=== PATIENT | female | born 1940 | race Two or more races ===

== ENCOUNTER 2018-06-05 07:15 | Outpatient (CLI) | payer OTHER | END 2018-06-05 07:35 | disposition home or self-care (01) | LOC: LAB 07:15 | DX: C90.00 Multiple myeloma not having achieved remission (principal); D53.1 Other megaloblastic anemias, not elsewhere classified; B02.9 Zoster without complications ==

== ENCOUNTER 2018-08-02 07:42 | Outpatient (CLI) | payer OTHER | END 2018-08-02 07:55 | disposition home or self-care (01) | LOC: LAB 07:42 | DX: C90.00 Multiple myeloma not having achieved remission (principal); D63.1 Anemia in chronic kidney disease; B02.9 Zoster without complications; I10 Essential (primary) hypertension ==

== ENCOUNTER → 2018-11-03 07:05 | Outpatient (CLI) | payer OTHER | END | disposition home or self-care (01) | LOC: LAB 07:05 | DX: C90.00 Multiple myeloma not having achieved remission (principal); D63.0 Anemia in neoplastic disease; D63.1 Anemia in chronic kidney disease; B02.9 Zoster without complications; N18.4 Chronic kidney disease, stage 4 (severe); R97.0 Elevated carcinoembryonic antigen [CEA]; D50.8 Other iron deficiency anemias; D51.8 Other vitamin B12 deficiency anemias; I10 Essential (primary) hypertension ==

== ENCOUNTER 2019-01-12 08:34 | Outpatient (CLI) | payer OTHER | END 2019-01-12 10:19 | disposition home or self-care (01) | LOC: LAB 08:34 | DX: C90.00 Multiple myeloma not having achieved remission (principal); D63.0 Anemia in neoplastic disease; D63.1 Anemia in chronic kidney disease; B02.9 Zoster without complications; N18.4 Chronic kidney disease, stage 4 (severe); R97.0 Elevated carcinoembryonic antigen [CEA] ==

== ENCOUNTER 2019-02-14 07:50 | Outpatient (CLI) | payer OTHER | END 2019-02-14 16:32 | disposition home or self-care (01) | LOC: LAB 07:50 | DX: E03.8 Other specified hypothyroidism (principal); C90.00 Multiple myeloma not having achieved remission; D63.0 Anemia in neoplastic disease; D63.1 Anemia in chronic kidney disease; B02.8 Zoster with other complications; N18.4 Chronic kidney disease, stage 4 (severe); R97.0 Elevated carcinoembryonic antigen [CEA]; D50.8 Other iron deficiency anemias; D51.8 Other vitamin B12 deficiency anemias; I10 Essential (primary) hypertension ==

== ENCOUNTER 2019-04-24 10:15 | Outpatient (CLI) | payer OTHER | END 2019-04-24 10:29 | disposition home or self-care (01) | LOC: LAB 10:15 | DX: D50.8 Other iron deficiency anemias (principal); C90.00 Multiple myeloma not having achieved remission; D63.0 Anemia in neoplastic disease; B02.9 Zoster without complications; N18.4 Chronic kidney disease, stage 4 (severe); R97.0 Elevated carcinoembryonic antigen [CEA] ==

== ENCOUNTER 2019-05-18 07:40 | Outpatient (CLI) | payer OTHER | END 2019-05-18 07:55 | disposition home or self-care (01) | LOC: LAB 07:40 | DX: E03.8 Other specified hypothyroidism (principal); C90.00 Multiple myeloma not having achieved remission; D63.0 Anemia in neoplastic disease; D63.1 Anemia in chronic kidney disease; B02.9 Zoster without complications; N18.4 Chronic kidney disease, stage 4 (severe); R97.0 Elevated carcinoembryonic antigen [CEA] ==

== ENCOUNTER 2019-05-18 08:45 | Outpatient (CLI) | payer OTHER | END 2019-05-18 08:57 | disposition home or self-care (01) | LOC: RAD 08:45 | DX: C90.00 Multiple myeloma not having achieved remission (principal); D63.0 Anemia in neoplastic disease; R97.0 Elevated carcinoembryonic antigen [CEA]; B02.9 Zoster without complications; N18.4 Chronic kidney disease, stage 4 (severe); D63.1 Anemia in chronic kidney disease ==

== ENCOUNTER 2019-06-26 08:35 | Outpatient (CLI) | payer OTHER | END 2019-06-26 08:40 | disposition home or self-care (01) | LOC: LAB 08:35 | DX: C90.00 Multiple myeloma not having achieved remission (principal); D63.0 Anemia in neoplastic disease; D63.1 Anemia in chronic kidney disease; B02.9 Zoster without complications; N18.4 Chronic kidney disease, stage 4 (severe); R97.0 Elevated carcinoembryonic antigen [CEA]; E03.8 Other specified hypothyroidism; D51.8 Other vitamin B12 deficiency anemias; D50.8 Other iron deficiency anemias; I10 Essential (primary) hypertension ==

== ENCOUNTER 2019-07-05 10:09 | Outpatient (CLI) | payer OTHER | END 2019-07-05 10:28 | disposition home or self-care (01) | LOC: NUCLEAR 10:09 | DX: C90.00 Multiple myeloma not having achieved remission (principal); D63.0 Anemia in neoplastic disease; D63.1 Anemia in chronic kidney disease; B02.9 Zoster without complications | CPT/HCPCS: 78315; A9503 ==

== ENCOUNTER 2019-08-07 08:42 | Outpatient (CLI) | payer OTHER | END 2019-08-07 15:00 | disposition home or self-care (01) | LOC: LAB 08:42 | DX: R97.0 Elevated carcinoembryonic antigen [CEA] (principal); C90.00 Multiple myeloma not having achieved remission; D63.0 Anemia in neoplastic disease; D63.1 Anemia in chronic kidney disease; B02.9 Zoster without complications; N18.4 Chronic kidney disease, stage 4 (severe); E03.8 Other specified hypothyroidism; D50.8 Other iron deficiency anemias; D51.8 Other vitamin B12 deficiency anemias ==

== ENCOUNTER 2019-10-22 07:35 | Outpatient (CLI) | payer OTHER | END 2019-10-22 07:45 | disposition home or self-care (01) | LOC: LAB 07:35 | DX: D50.8 Other iron deficiency anemias (principal); C90.00 Multiple myeloma not having achieved remission; D63.0 Anemia in neoplastic disease; D63.1 Anemia in chronic kidney disease; B02.8 Zoster with other complications; N18.4 Chronic kidney disease, stage 4 (severe); R97.0 Elevated carcinoembryonic antigen [CEA]; E03.8 Other specified hypothyroidism; D51.8 Other vitamin B12 deficiency anemias ==

== ENCOUNTER 2020-01-29 07:30 | Outpatient (CLI) | payer OTHER | END 2020-01-29 07:43 | disposition home or self-care (01) | LOC: LAB 07:30 | DX: D50.8 Other iron deficiency anemias (principal); D47.2 Monoclonal gammopathy; C90.00 Multiple myeloma not having achieved remission; D63.8 Anemia in other chronic diseases classified elsewhere; D63.0 Anemia in neoplastic disease; D69.59 Other secondary thrombocytopenia; B02.9 Zoster without complications; N18.4 Chronic kidney disease, stage 4 (severe); R97.0 Elevated carcinoembryonic antigen [CEA]; E03.8 Other specified hypothyroidism ==

== ENCOUNTER → 2020-02-27 06:36 | Outpatient (CLI) | payer OTHER | END | disposition home or self-care (01) | LOC: LAB 06:36 | DX: C90.00 Multiple myeloma not having achieved remission (principal); D63.0 Anemia in neoplastic disease; D63.1 Anemia in chronic kidney disease; D69.59 Other secondary thrombocytopenia; B02.8 Zoster with other complications; N18.4 Chronic kidney disease, stage 4 (severe); R97.0 Elevated carcinoembryonic antigen [CEA]; E03.8 Other specified hypothyroidism; D50.8 Other iron deficiency anemias ==

== ENCOUNTER 2020-04-01 06:38 | Outpatient (CLI) | payer OTHER | END 2020-04-01 06:51 | disposition home or self-care (01) | LOC: LAB 06:38 | PROVIDERS: ATTEND Internal Medicine Hematology & Oncology | DX: D50.8 Other iron deficiency anemias (principal); C90.00 Multiple myeloma not having achieved remission; D63.0 Anemia in neoplastic disease; D63.1 Anemia in chronic kidney disease; D69.59 Other secondary thrombocytopenia; B02.9 Zoster without complications; N18.4 Chronic kidney disease, stage 4 (severe); R97.0 Elevated carcinoembryonic antigen [CEA]; E03.8 Other specified hypothyroidism ==

== ENCOUNTER 2020-04-29 07:20 | Outpatient (CLI) | payer OTHER | END 2020-04-29 07:30 | disposition home or self-care (01) | LOC: LAB 07:20 | PROVIDERS: ATTEND Internal Medicine Hematology & Oncology | DX: D50.8 Other iron deficiency anemias (principal); D47.2 Monoclonal gammopathy; C90.00 Multiple myeloma not having achieved remission; D63.0 Anemia in neoplastic disease; D63.1 Anemia in chronic kidney disease; D69.59 Other secondary thrombocytopenia; B02.9 Zoster without complications; N18.4 Chronic kidney disease, stage 4 (severe); R97.0 Elevated carcinoembryonic antigen [CEA]; E03.8 Other specified hypothyroidism ==

== ENCOUNTER 2020-06-18 07:51 | Outpatient (CLI) | payer OTHER | END 2020-06-18 08:02 | disposition home or self-care (01) | LOC: LAB 07:51 | PROVIDERS: ATTEND Internal Medicine Hematology & Oncology | DX: D50.8 Other iron deficiency anemias (principal); C90.00 Multiple myeloma not having achieved remission; D63.1 Anemia in chronic kidney disease; D69.59 Other secondary thrombocytopenia; B02.9 Zoster without complications; N18.4 Chronic kidney disease, stage 4 (severe); R97.0 Elevated carcinoembryonic antigen [CEA]; E03.8 Other specified hypothyroidism ==

== ENCOUNTER 2020-07-18 08:41 | Outpatient (CLI) | payer OTHER | END 2020-07-18 09:00 | disposition home or self-care (01) | LOC: LAB 08:41 | PROVIDERS: ATTEND Internal Medicine Hematology & Oncology | DX: D50.8 Other iron deficiency anemias (principal); E03.8 Other specified hypothyroidism; C90.00 Multiple myeloma not having achieved remission; D63.0 Anemia in neoplastic disease; D63.1 Anemia in chronic kidney disease; D69.59 Other secondary thrombocytopenia; B02.9 Zoster without complications; N18.4 Chronic kidney disease, stage 4 (severe); R97.0 Elevated carcinoembryonic antigen [CEA] ==

== ENCOUNTER 2020-08-21 07:39 | Outpatient (CLI) | payer OTHER | END 2020-08-21 07:45 | disposition home or self-care (01) | LOC: LAB 07:39 | PROVIDERS: ATTEND Internal Medicine Hematology & Oncology | DX: E03.8 Other specified hypothyroidism (principal); D50.8 Other iron deficiency anemias; R79.89 Other specified abnormal findings of blood chemistry; R74.02 Elevation of levels of lactic acid dehydrogenase [LDH]; K76.89 Other specified diseases of liver; C90.00 Multiple myeloma not having achieved remission; D63.0 Anemia in neoplastic disease; D63.1 Anemia in chronic kidney disease; D69.59 Other secondary thrombocytopenia; B02.9 Zoster without complications; N18.4 Chronic kidney disease, stage 4 (severe); R97.0 Elevated carcinoembryonic antigen [CEA] ==

== ENCOUNTER 2020-09-18 07:56 | Outpatient (CLI) | payer OTHER | END 2020-09-18 10:37 | disposition home or self-care (01) | LOC: LAB 07:56 | PROVIDERS: ATTEND Internal Medicine Hematology & Oncology | DX: D50.8 Other iron deficiency anemias (principal); D47.2 Monoclonal gammopathy; C90.00 Multiple myeloma not having achieved remission; D63.8 Anemia in other chronic diseases classified elsewhere; E03.8 Other specified hypothyroidism; D63.1 Anemia in chronic kidney disease; D69.59 Other secondary thrombocytopenia; B02.8 Zoster with other complications; N18.4 Chronic kidney disease, stage 4 (severe); R97.0 Elevated carcinoembryonic antigen [CEA] ==

== ENCOUNTER → 2020-10-28 | Outpatient (CLI) | payer OTHER | END | disposition home or self-care (01) | LOC: LAB 07:18 | PROVIDERS: ATTEND Internal Medicine Hematology & Oncology | DX: D50.8 Other iron deficiency anemias (principal); I10 Essential (primary) hypertension; R74.02 Elevation of levels of lactic acid dehydrogenase [LDH]; K76.89 Other specified diseases of liver; C90.00 Multiple myeloma not having achieved remission; D63.0 Anemia in neoplastic disease; D69.59 Other secondary thrombocytopenia; B02.8 Zoster with other complications; R97.0 Elevated carcinoembryonic antigen [CEA]; E03.8 Other specified hypothyroidism; I73.89 Other specified peripheral vascular diseases; I70.213 Atherosclerosis of native arteries of extremities with intermittent claudication, bilateral legs ==